=== PATIENT | female | born 1935 | race Caucasian/White ===

== ENCOUNTER 2017-07-07 20:25 | Inpatient (IN) | payer MEDICARE ==
[~2017-07-07] VITALS: Ht 165.1 cm; Wt 70.3 kg
--- NOTE | ~2017-07-07 | OP ---
PATIENT NAME: YAIR MARADIAGA MEDICAL RECORD: [id number] :31 LOCATION:[id number] ADMISSION DATE:07/07/17 SURGEON: JAIME PERALTA MD DATE OF OPERATION: 07/11/2017 PREOPERATIVE DIAGNOSIS: Intertrochanteric hip fracture of the left hip. POSTOPERATIVE DIAGNOSIS: Intertrochanteric hip fracture of the left hip. PROCEDURE: Cephalomedullary fixation of left intertrochanteric hip fracture (gamma nail). SURGEON: Jaime Peralta MD ANESTHESIA: General. INTRAOPERATIVE COMPLICATIONS: None. SUMMARY OF PATHOLOGY AND FINDINGS: Essentially, the patient had a displaced intertrochanteric hip fracture consistent with the preoperative diagnosis that reduced nicely with the gamma nail compression system. OPERATIVE SUMMARY IN DETAIL: After obtaining the appropriate preoperative orthopedic surgery consent as well as anesthetic consultation, evaluation and clearance, the patient was brought to the operating room and placed on the operating table in supine position. After general laryngeal mask airway was administered, the patient was placed on the fracture table. The right leg was placed in the well leg ferrari, left leg was placed in the traction boot. The patient was held firmly to the operating table using the seatbelt strap and sheet system. Under direct fluoroscopic visualization, the hip was reduced with traction. The left hip was then prepped and draped in routine sterile fashion. An incision was made superior to the tip of the greater trochanter. The gamma nail awl was then used to create a starting point. A ball-tipped guidewire was passed. Proximal reaming was then followed by insertion of the standard short gamma nail of 125 degree angle. After inserting to the appropriate depth, the cannula system for the cannulated screw guide pin was utilized. The guide pin was placed in a center-center position of the femoral head as seen on AP and lateral fluoroscopic planes. The appropriate reaming was then followed by insertion of the compression screw. Compression screw was inserted within 2 mm of the articular surface. The derotational screw was then put into place and backed off approximately 2 turns to allow for compression, but not rotation. The fracture was then compressed using the compression device on the gamma nail system. Having completed this, the distal interlocking screw was put into place again using the guided system. Final radiographs were taken and submitted for radiologist review. Wounds were irrigated and closed in usual fashion with 2-0 Vicryl followed by skin abiola. Sterile dressings were applied. The patient was awakened, LMA was removed. She was taken to recovery room in stable condition. All final needle and sponge counts were correct. ESTIMATED BLOOD LOSS: 200 cc. TRANSINT:[id number] Voice Confirmation ID: [id number] DOCUMENT ID: [id number] OPERATIVE REPORT [id number] YAIR MARADIAGA MD, JAIME GUERRA at [id number] CC: [id number] DICTATION DATE: 07/17/17 1118 POWER BARKER: 07/17/17 1224 DIS IN 07/16/17 [facility] [address] [place] [address]
[~2017-07-07 20:25] MED LIST: ACTOS15 MG PO; CHILDREN'S ASPI81 MG PO; COZAAR50 MG PO; FISH OIL 1,0001 CA1 PO; FOLIC ACID1 MG PO; K-PHOS250 MG PO; LIPITOR20 MG PO; PLAVIX75 MG PO; SYNTHROID88 MCG PO; VITAMIN B-121000 MCG PO; VITAMIN D2000 UNIT PO
[2017-07-07 21:17] LABS: BASOPHILS 0.2 % (0-2); HEMATOCRIT 36.9 % (36.0-48.0); HEMOGLOBIN 12.8 g/dL (12-16); IMMATURE GRANULOCYTES 0.8 % (0-5); LYMPHOCYTES 19.8 % (15-50); MCHC 34.7 g/dL (31.0-37.0); MCV 95.1 fL (80.0-100.0); MEAN PLATELET VOLUME 9.6 fL (7.4-10.4); MONOCYTES 8.6 % (2-11); NEUTROPHILS 69.6 % (40-80); PLATELET COUNT 245 10x3/uL (130-400); RBC 3.88 10x6/uL (4.00-5.40); RDW 13.4 % (11.5-14.5); WBC 10.6 10x3/uL (4.8-10.8)
[2017-07-07 21:38] LABS: ANION GAP 13.3 mmol/L (8-16); BILIRUBIN - TOTAL 0.36 mg/dL (0.2-1.3); CALCIUM 8.7 mg/dL (8.5-10.1); CARBON DIOXIDE 26.4 mmol/L (21.0-32.0); CREATININE - SERUM 1.4 mg/dL (0.6-1.3); POTASSIUM - SERUM 3.7 mmol/L (3.5-5.1); PROTEIN - SERUM 6.7 g/dL (6.4-8.2)
[2017-07-07 23:52] LABS: APPEARANCE SLT CLOUDY (CLEAR); BILIRUBIN NEGATIVE (NEGATIVE); COLOR YELLOW (YELLOW); GLUCOSE 1000 mg/dL (NEGATIVE); KETONE NEGATIVE (NEGATIVE); NITRITE NEGATIVE (NEGATIVE); PROTEIN NEGATIVE (NEGATIVE); UROBILINOGEN NORMAL (NORMAL)
[2017-07-07 23:53] LABS: BACTERIA MANY /hpf (NONE SEEN); EPITHELIAL CELLS 0-5 /hpf (0-5); RED CELLS - URINE 0-5 /hpf (0-5); WHITE CELLS - URINE 0-5 /hpf (0-5)
[2017-07-08 07:01] LABS: BASOPHILS 0.1 % (0-2); EOSINOPHILS 0.1 % (0-7); HEMATOCRIT 39.6 % (36.0-48.0); HEMOGLOBIN 13.8 g/dL (12-16); IMMATURE GRANULOCYTES 0.4 % (0-5); LYMPHOCYTES 5.4 % (15-50); MCHC 34.8 g/dL (31.0-37.0); MCV 94.7 fL (80.0-100.0); MEAN PLATELET VOLUME 10.1 fL (7.4-10.4); MONOCYTES 9.1 % (2-11); NEUTROPHILS 84.9 % (40-80); PLATELET COUNT 246 10x3/uL (130-400); RBC 4.18 10x6/uL (4.00-5.40); RDW 13.2 % (11.5-14.5); WBC 11.8 10x3/uL (4.8-10.8)
[2017-07-08 07:14] LABS: INR 1.04 (0.85-1.17); PROTIME 13.2 SECONDS (11.6-15.0)
[2017-07-08 07:23] LABS: ALBUMIN 3.4 g/dL (3.4-5.0); BILIRUBIN - TOTAL 1.36 mg/dL (0.2-1.3); CALCIUM 9.1 mg/dL (8.5-10.1); CARBON DIOXIDE 26.3 mmol/L (21.0-32.0); CREATININE - SERUM 1.1 mg/dL (0.6-1.3); PROTEIN - SERUM 6.9 g/dL (6.4-8.2)
[2017-07-08 07:26] LABS: POTASSIUM - SERUM 4.3 mmol/L (3.5-5.1)
[2017-07-08 12:33] VITALS: BP 198/105; BMI 25.8
[2017-07-08 14:49] VITALS: BMI 25.7
[2017-07-09 05:02] LABS: BASOPHILS 0.2 % (0-2); EOSINOPHILS 3.2 % (0-7); HEMATOCRIT 35.3 % (36.0-48.0); HEMOGLOBIN 12.1 g/dL (12-16); IMMATURE GRANULOCYTES 0.3 % (0-5); LYMPHOCYTES 13.9 % (15-50); MCH 32.5 pg (26.0-34.0); MCHC 34.3 g/dL (31.0-37.0); MCV 94.9 fL (80.0-100.0); MEAN PLATELET VOLUME 9.9 fL (7.4-10.4); MONOCYTES 9.8 % (2-11); NEUTROPHILS 72.6 % (40-80); PLATELET COUNT 221 10x3/uL (130-400); RBC 3.72 10x6/uL (4.00-5.40); RDW 13.3 % (11.5-14.5); WBC 10.6 10x3/uL (4.8-10.8)
[2017-07-09 05:19] LABS: ALBUMIN 2.7 g/dL (3.4-5.0); ANION GAP 10.2 mmol/L (8-16); BILIRUBIN - TOTAL 1.37 mg/dL (0.2-1.3); CALCIUM 8.6 mg/dL (8.5-10.1); CARBON DIOXIDE 29.6 mmol/L (21.0-32.0); POTASSIUM - SERUM 3.8 mmol/L (3.5-5.1); PROTEIN - SERUM 6.2 g/dL (6.4-8.2)
[2017-07-09 06:17] VITALS: BP 143/72
[2017-07-09 07:59] VITALS: BP 152/75
[2017-07-09 12:14] VITALS: BP 174/90
[2017-07-09 15:51] VITALS: BP 176/80
[2017-07-09 19:58] VITALS: BP 179/69
[2017-07-10 02:00] VITALS: BP 164/68
[2017-07-10 03:56] VITALS: BP 192/93
[2017-07-10 06:02] LABS: BASOPHILS 0.2 % (0-2); EOSINOPHILS 1.2 % (0-7); HEMATOCRIT 36.6 % (36.0-48.0); HEMOGLOBIN 12.9 g/dL (12-16); IMMATURE GRANULOCYTES 0.7 % (0-5); LYMPHOCYTES 14.1 % (15-50); MCH 33.1 pg (26.0-34.0); MCHC 35.2 g/dL (31.0-37.0); MCV 93.8 fL (80.0-100.0); MEAN PLATELET VOLUME 10.6 fL (7.4-10.4); MONOCYTES 12.2 % (2-11); NEUTROPHILS 71.6 % (40-80); PLATELET COUNT 250 10x3/uL (130-400); RDW 13.3 % (11.5-14.5); WBC 12.1 10x3/uL (4.8-10.8)
[2017-07-10 06:21] LABS: ANION GAP 14.6 mmol/L (8-16); BILIRUBIN - TOTAL 1.3 mg/dL (0.2-1.3); CALCIUM 8.8 mg/dL (8.5-10.1); CREATININE - SERUM 1.1 mg/dL (0.6-1.3); POTASSIUM - SERUM 3.6 mmol/L (3.5-5.1); PROTEIN - SERUM 7.1 g/dL (6.4-8.2)
[2017-07-10 06:53] LABS: APPEARANCE HAZY (CLEAR); BILIRUBIN NEGATIVE (NEGATIVE); COLOR YELLOW (YELLOW); GLUCOSE 1000 mg/dL (NEGATIVE); KETONE SMALL mg/dL (NEGATIVE); NITRITE POSITIVE (NEGATIVE); PROTEIN NEGATIVE (NEGATIVE); SPECIFIC GRAVITY 1.015 (1.005-1.020); UROBILINOGEN NORMAL (NORMAL)
[2017-07-10 06:55] LABS: BACTERIA FEW /hpf (NONE SEEN); EPITHELIAL CELLS OCC /hpf (0-5)
[2017-07-10 09:02] VITALS: BP 192/89
[2017-07-10 13:57] VITALS: BP 192/92
[2017-07-10 17:20] VITALS: BP 189/92
[2017-07-10 21:15] VITALS: BP 190/84
[2017-07-11 04:08] VITALS: BP 184/88
[2017-07-11 06:08] LABS: BASOPHILS 0.2 % (0-2); EOSINOPHILS 1.9 % (0-7); HEMATOCRIT 39.5 % (36.0-48.0); HEMOGLOBIN 13.8 g/dL (12-16); IMMATURE GRANULOCYTES 1.2 % (0-5); LYMPHOCYTES 14.3 % (15-50); MCH 32.9 pg (26.0-34.0); MCHC 34.9 g/dL (31.0-37.0); MCV 94.3 fL (80.0-100.0); MEAN PLATELET VOLUME 10.8 fL (7.4-10.4); MONOCYTES 10.1 % (2-11); NEUTROPHILS 72.3 % (40-80); PLATELET COUNT 287 10x3/uL (130-400); RBC 4.19 10x6/uL (4.00-5.40); RDW 13.2 % (11.5-14.5); WBC 13.9 10x3/uL (4.8-10.8)
[2017-07-11 07:14] LABS: ANION GAP 15.1 mmol/L (8-16); BILIRUBIN - TOTAL 1.1 mg/dL (0.2-1.3); CALCIUM 8.8 mg/dL (8.5-10.1); CARBON DIOXIDE 26.6 mmol/L (21.0-32.0); CREATININE - SERUM 1.1 mg/dL (0.6-1.3); POTASSIUM - SERUM 3.7 mmol/L (3.5-5.1); PROTEIN - SERUM 6.8 g/dL (6.4-8.2)
[2017-07-11 09:30] VITALS: BP 191/79
[2017-07-11 14:21] VITALS: BP 168/88
[2017-07-11 20:00] VITALS: BP 132/81
[2017-07-12] VITALS: BP 144/85
[2017-07-12 04:00] VITALS: BP 162/82
[2017-07-12 07:42] VITALS: BP 169/89
[2017-07-12 07:44] LABS: BASOPHILS 0.2 % (0-2); EOSINOPHILS 1.1 % (0-7); HEMATOCRIT 34.2 % (36.0-48.0); IMMATURE GRANULOCYTES 0.8 % (0-5); LYMPHOCYTES 11.6 % (15-50); MCH 32.7 pg (26.0-34.0); MCHC 35.1 g/dL (31.0-37.0); MCV 93.2 fL (80.0-100.0); MEAN PLATELET VOLUME 10.1 fL (7.4-10.4); MONOCYTES 11.8 % (2-11); NEUTROPHILS 74.5 % (40-80); PLATELET COUNT 310 10x3/uL (130-400); RBC 3.67 10x6/uL (4.00-5.40); RDW 13.2 % (11.5-14.5); WBC 13.2 10x3/uL (4.8-10.8)
[2017-07-12 07:54] LABS: ALBUMIN 2.5 g/dL (3.4-5.0); BILIRUBIN - TOTAL 1.08 mg/dL (0.2-1.3); CALCIUM 8.5 mg/dL (8.5-10.1); CARBON DIOXIDE 26.6 mmol/L (21.0-32.0); CREATININE - SERUM 0.9 mg/dL (0.6-1.3); POTASSIUM - SERUM 3.6 mmol/L (3.5-5.1); PROTEIN - SERUM 6.5 g/dL (6.4-8.2)
[2017-07-12 12:18] VITALS: BP 202/103
[2017-07-12 15:49] VITALS: BP 179/86
[2017-07-12 20:00] VITALS: BP 173/86
[2017-07-12 21:19] VITALS: Ht 165.1 cm; Wt 70.3 kg
[2017-07-13] VITALS: BP 152/71
[2017-07-13 04:00] VITALS: BP 168/89
[2017-07-13 05:43] LABS: BASOPHILS 0.2 % (0-2); EOSINOPHILS 1.5 % (0-7); HEMATOCRIT 32.7 % (36.0-48.0); IMMATURE GRANULOCYTES 1.1 % (0-5); LYMPHOCYTES 10.9 % (15-50); MCH 32.2 pg (26.0-34.0); MCHC 33.6 g/dL (31.0-37.0); MCV 95.6 fL (80.0-100.0); MEAN PLATELET VOLUME 10.2 fL (7.4-10.4); MONOCYTES 10.9 % (2-11); NEUTROPHILS 75.4 % (40-80); PLATELET COUNT 301 10x3/uL (130-400); RBC 3.42 10x6/uL (4.00-5.40); RDW 13.5 % (11.5-14.5); WBC 13.2 10x3/uL (4.8-10.8)
[2017-07-13 05:46] LABS: ALBUMIN 2.2 g/dL (3.4-5.0); ANION GAP 14.1 mmol/L (8-16); BILIRUBIN - TOTAL 0.96 mg/dL (0.2-1.3); CALCIUM 8.4 mg/dL (8.5-10.1); CARBON DIOXIDE 25.8 mmol/L (21.0-32.0); POTASSIUM - SERUM 3.9 mmol/L (3.5-5.1); PROTEIN - SERUM 6.1 g/dL (6.4-8.2)
[2017-07-13 09:15] VITALS: BP 179/85
[2017-07-13 11:33] VITALS: BP 194/88
[2017-07-13 16:10] VITALS: BP 180/78
[2017-07-13 22:40] VITALS: BP 181/73
[2017-07-14 04:26] VITALS: BP 177/82
[2017-07-14 05:11] LABS: BASOPHILS 0.1 % (0-2); HEMATOCRIT 32.1 % (36.0-48.0); HEMOGLOBIN 10.8 g/dL (12-16); IMMATURE GRANULOCYTES 1.1 % (0-5); MCH 32.3 pg (26.0-34.0); MCHC 33.6 g/dL (31.0-37.0); MCV 96.1 fL (80.0-100.0); MEAN PLATELET VOLUME 10.1 fL (7.4-10.4); NEUTROPHILS 69.8 % (40-80); PLATELET COUNT 312 10x3/uL (130-400); RBC 3.34 10x6/uL (4.00-5.40); RDW 13.7 % (11.5-14.5); WBC 11.2 10x3/uL (4.8-10.8)
[2017-07-14 05:14] LABS: ALBUMIN 2.3 g/dL (3.4-5.0); ANION GAP 12.2 mmol/L (8-16); BILIRUBIN - TOTAL 0.8 mg/dL (0.2-1.3); CALCIUM 8.4 mg/dL (8.5-10.1); CARBON DIOXIDE 28.2 mmol/L (21.0-32.0); CREATININE - SERUM 1.1 mg/dL (0.6-1.3); POTASSIUM - SERUM 4.4 mmol/L (3.5-5.1); PROTEIN - SERUM 5.6 g/dL (6.4-8.2)
[2017-07-14 08:23] VITALS: BP 157/86
[2017-07-14 13:53] VITALS: BP 143/76
[2017-07-14 16:41] VITALS: BP 120/69
[2017-07-14 21:26] VITALS: BP 148/62
[2017-07-15 02:09] VITALS: BP 152/64
[2017-07-15 05:24] VITALS: BP 187/95
[2017-07-15 06:02] LABS: BASOPHILS 0.2 % (0-2); EOSINOPHILS 3.3 % (0-7); HEMATOCRIT 32.1 % (36.0-48.0); IMMATURE GRANULOCYTES 1.3 % (0-5); LYMPHOCYTES 17.9 % (15-50); MCH 32.4 pg (26.0-34.0); MCHC 34.3 g/dL (31.0-37.0); MCV 94.7 fL (80.0-100.0); MEAN PLATELET VOLUME 10.1 fL (7.4-10.4); MONOCYTES 12.1 % (2-11); NEUTROPHILS 65.2 % (40-80); PLATELET COUNT 365 10x3/uL (130-400); RBC 3.39 10x6/uL (4.00-5.40); RDW 13.5 % (11.5-14.5); WBC 12.8 10x3/uL (4.8-10.8)
[2017-07-15 06:28] LABS: ALBUMIN 2.2 g/dL (3.4-5.0); ANION GAP 11.2 mmol/L (8-16); BILIRUBIN - TOTAL 0.78 mg/dL (0.2-1.3); CALCIUM 8.7 mg/dL (8.5-10.1); CARBON DIOXIDE 29.3 mmol/L (21.0-32.0); PROTEIN - SERUM 6.1 g/dL (6.4-8.2)
[2017-07-15 06:30] LABS: POTASSIUM - SERUM 3.5 mmol/L (3.5-5.1)
[2017-07-15 08:48] VITALS: BP 168/73
[2017-07-15 13:12] VITALS: BP 181/88
[2017-07-15 16:45] VITALS: BP 163/75
[2017-07-15 20:39] VITALS: BP 186/77
[2017-07-16 04:57] VITALS: BP 163/83
[2017-07-16 07:08] LABS: BASOPHILS 0.2 % (0-2); HEMATOCRIT 32.5 % (36.0-48.0); HEMOGLOBIN 11.1 g/dL (12-16); IMMATURE GRANULOCYTES 1.9 % (0-5); LYMPHOCYTES 16.6 % (15-50); MCH 32.2 pg (26.0-34.0); MCHC 34.2 g/dL (31.0-37.0); MCV 94.2 fL (80.0-100.0); MEAN PLATELET VOLUME 9.7 fL (7.4-10.4); MONOCYTES 10.6 % (2-11); NEUTROPHILS 68.7 % (40-80); PLATELET COUNT 355 10x3/uL (130-400); RBC 3.45 10x6/uL (4.00-5.40); RDW 13.4 % (11.5-14.5)
[2017-07-16 07:26] LABS: ALBUMIN 2.2 g/dL (3.4-5.0); ANION GAP 11.7 mmol/L (8-16); BILIRUBIN - TOTAL 1.3 mg/dL (0.2-1.3); CALCIUM 8.4 mg/dL (8.5-10.1); CARBON DIOXIDE 28.1 mmol/L (21.0-32.0); CREATININE - SERUM 0.8 mg/dL (0.6-1.3); POTASSIUM - SERUM 3.8 mmol/L (3.5-5.1); PROTEIN - SERUM 6.1 g/dL (6.4-8.2)
[2017-07-16] MEDS ORDERED: ELIQUIS2.5 MG PO (07:32)
[2017-07-16] MEDS ORDERED: NORCO-5 PO (07:32)
[2017-07-16 09:36] VITALS: BP 160/80
[2017-07-16 13:39] VITALS: BP 145/65
[2017-07-16 16:25] VITALS: BP 156/64
== END 2017-07-16 16:32 | DRG 481 ==
LOC: D.ER 20:25 → D.EDHOLD 22:50 → D.MS 22:50 → D.SDCHOLD 07-10 12:22 → D.MS 07-10 12:25
PROVIDERS: Emergency Medicine; Family Medicine; Orthopaedic Surgery
PROC: 0QS736Z Reposition Left Upper Femur with Intramedullary Internal Fixation Device, Percutaneous Approach (ICD-10-PCS; principal; 2017-07-07)
PROC: 0QH736Z Insertion of Intramedullary Internal Fixation Device into Left Upper Femur, Percutaneous Approach (ICD-10-PCS; 2017-07-11)
PROC: 02HV33Z Insertion of Infusion Device into Superior Vena Cava, Percutaneous Approach (ICD-10-PCS; 2017-07-12)
DX: S72.142A Displaced intertrochanteric fracture of left femur, initial encounter for closed fracture (principal); N17.9 Acute kidney failure, unspecified; N39.0 Urinary tract infection, site not specified; W19.XXXA Unspecified fall, initial encounter; E11.65 Type 2 diabetes mellitus with hyperglycemia; I10 Essential (primary) hypertension; F03.90 Unspecified dementia, unspecified severity, without behavioral disturbance, psychotic disturbance, mood disturbance, and anxiety; B96.20 Unspecified Escherichia coli [E. coli] as the cause of diseases classified elsewhere; R00.0 Tachycardia, unspecified